=== PATIENT | female | born 1985 | race Caucasian/White ===

== ENCOUNTER 2022-09-05 18:24 | Emergency (ER) | payer MEDICAID, SELFPAY ==
[2022-09-05 18:27] VITALS: BP 153/107; PULSE 108; RESP 22; TEMP 35.6; O2SAT 100; BMI 31.5
--- NOTE | 2022-09-05 18:40 | EX.ED.DYSGE1 ---
HPI <CHRISTINA Núñez - Last Filed: 09/05/22 20:32> History of Present Illness Chief Complaint: Substance Abuse Narrative Narrative: 36-year-old female who presents to the emergency department for detox of fentanyl. Patient takes no other medications daily. Patient states that she uses up to 1 g of fentanyl a day, patient snorts all of her drugs. Patient denies any alcohol abuse. Patient states he does smoke 1/2 pack/day. Patient has been using for 3 years, she lives with her significant other who also uses methamphetamine and fentanyl. Patient states that on Thursday which was 2 days ago, she overdosed, and her significant other had a Narcan her. Patient states that this scared her, they have been talk about getting clean for some time, she does have a child who she does not have custody of. Patient is here for evaluation and for detox. COUNTS INCLUDE 234 BEDS AT THE [facility] <CHRISTINA Núñez - Last Filed: 09/05/22 20:32> COUNTS INCLUDE 234 BEDS AT THE [facility] Medical History (Updated 09/05/22 @ 20:32 by CHRISTINA Núñez) Substance abuse Home Medications NK 09/05/22 [History Last Taken Unknown] Allergy/AdvReac Type Severity Reaction Status Date / Time No Known Allergies Allergy Verified 09/05/22 18:27 Surgical History no surgical history Social History Smoking Status: Current every day smoker tobacco type: cigarettes ROS <CHRISTINA Núñez - Last Filed: 09/05/22 20:32> ROS ED ROS Narrative Constitutional: Negative for fever, chills, weight loss, weakness Eyes: Negative for vision loss, vision change, double vision ENT: Negative for any sore throat, ear pain. Positive for congestion Cardiovascular: Negative for any chest pain, tightness, palpitations Respiratory: Negative for any cough, sputum production, hemoptysis, dyspnea, dyspnea on exertion, orthopnea Gastrointestinal: Negative for any abdominal pain, nausea, vomiting, diarrhea, constipation, blood in stool, blood in vomit : Negative for any urinary frequency, dysuria, retention, blood in urine Muscle skeletal: Negative for any muscle joint pain, stiffness, arthralgias, neck pain, back pain. Positive for myalgias Neurological: Negative for any syncope, numbness or tingling, dizziness. Positive for headache Skin: Negative for any rashes, lumps, itching, abrasions, lacerations Psychiatric: Negative for any depression, anxiety, stress, suicidal ideation, homicidal ideation Hematologic: Negative for any easy bruising, excessive bruising, easy bleeding Allergies: Negative for any eczema, hives, rash EXAM <CHRISTINA Núñez - Last Filed: 09/05/22 20:32> Physical Exam Narrative Exam Narrative: Vital signs reviewed. HEET: Head normocephalic atraumatic, TMs clear bilaterally. Posterior pharynx is clear, moist mucous membranes. Nares clear bilaterally. Neck: Supple with no lymphadenopathy or tenderness. No signs of meningismus, negative jolt sign. Cardiac: Regular rate and rhythm no murmurs gallops or rubs, equal peripheral pulses bilaterally. Respiratory: Lungs clear to auscultation bilaterally. No chest tenderness. Abdomen: Soft, nontender, nondistended. No abdominal bruit or pulsatile masses. No hepatosplenomegaly Extremities: No peripheral edema, no signs of gross trauma or deformity. Active full range of motion of all extremities. Neuro: Cranial nerves II through XII intact, no focal neurological deficits. Skin: Clean dry and intact with no rash, purpura, petechiae, vesicles or pustules. Backs/flank: No CVA tenderness, no midline spinal tenderness, no deformity. Psych: Normal mood and affect. No SI, HI or acute psychosis. Const Vital Signs: 09/05/22 18:27 Temperature 96.1 F L Temperature Source Temporal Pulse Rate 108 H Respiratory Rate 22 H Blood Pressure 153/107 H Blood Pressure Mean 122 Pulse Ox 100 Oxygen Delivery Method Room Air Positive well nourished and well developed General Appearance ED: well developed <Dr. Vishnu Pham DO - Last Filed: 09/05/22 20:36> Physical Exam Const Vital Signs: 09/05/22 18:27 Temperature 96.1 F L Temperature Source Temporal Pulse Rate 108 H Respiratory Rate 22 H Blood Pressure 153/107 H Blood Pressure Mean 122 Pulse Ox 100 Oxygen Delivery Method Room Air MDM <CHRISTINA Núñez - Last Filed: 09/05/22 20:32> MDM Lab Data Labs: Laboratory Results - last 24 hr 09/05/22 20:03 Ur Drug Screen Comment Treatment and Re-Evaluation Narrative: After being here for 1.5 hours, the patient told the staff that she does no longer wish to receive detox at this time. Patient and her boyfriend who also was a patient here for detox both left. Patient will be elopement. <Dr. Vishnu Pham, DO - Last Filed: 09/05/22 20:36> [facility] MDM Narrative Medical decision making narrative: This patient was seen with a PA/GRANULATING MACHINE OPERATOR Individually assessed they patient including history and physical. I have reviewed everything on the chart that is available and agree with the documentation provided by the PA/GRANULATING MACHINE OPERATOR including discussion about the assessment, treatment plan, discussion, and return precautions. Patient presented for detox from opioids. She was initially assessed. Plan was to admit her for detox. We did attempt to plan blood work however this was difficult for her. Patient ultimately decided to leave. Impression: 1. Fentanyl abuse Lab Data Labs: Laboratory Results - last 24 hr 09/05/22 20:03 Ur Drug Screen Comment Discharge Plan Triage Chief Complaint: Substance Abuse ED Midlevel Provider: Jasiel Hernandez ED Provider: Vishnu Pham Dx/Rx/DC Orders Clinical Impression: Heroin abuse Prescriptions: No Action NK Primary Care Provider: Care Physician,No Primary Referrals: Care Physician,No Primary [Primary Care Provider] - Disposition Disposition: Elopement Discharge Date/Time: 09/05/22 20:31
[2022-09-05] MEDS: Acetaminophen 500 MG Tablet 1000 MG PO (20:09)
--- NOTE | 2022-09-05 20:29 | ED.RN ---
pt does not want to stay for detox program.
[2022-09-05 20:45] LABS: Amphetamine Urine VISTA NEGATIVE (<1000 ng/mL); Barbiturate Urine VISTA NEGATIVE (< 200 ng/mL); Benzodiazepine Urine VISTA POSITIVE (< 200 ng/mL); Cocaine Urine VISTA NEGATIVE (< 300 ng/mL); Ecstacy Urine VISTA NEGATIVE (< 500 ng/mL); Methadone Urine VISTA NEGATIVE (< 300 ng/mL); PCP Urine VISTA NEGATIVE (< 25 ng/mL); THC Urine VISTA NEGATIVE (< 50 ng/mL); Vista UDS pH Range 7
== END 2022-09-05 20:31 | disposition left against medical advice (07) ==
PROVIDERS: Nurse Practitioner; Emergency Provider Student in an Organized Health Care Education/Training Program; Visit Provider Student in an Organized Health Care Education/Training Program
DX: F11.10 Opioid abuse, uncomplicated (principal); F17.210 Nicotine dependence, cigarettes, uncomplicated
CPT/HCPCS: 80307; 99283